=== PATIENT | male | born 1970 | race Caucasian/White ===

== ENCOUNTER 2021-06-16 20:57 | Inpatient (IN) ==
[2021-06-16 21:34] LABS: Basophils # 0.1 10*3/uL (0.0-0.2); Basophils % 0.3 % (0.0-0.8); Eosinophils # 0.2 10*3/uL (0.0-0.87); Eosinophils % 0.9 % (0.00-10.9); Hematocrit 41.8 VOL% (42.0-52.0); Immature Granulocytes % 0.4 %; Immature Granulocytes Absolute 0.08 #; Lymphocytes # 2.6 10*3/uL (1.4-4.0); Lymphocytes % 13.9 % (21.2-54.2); Mean Corpuscular HGB Conc 33.5 GM/DL (32-36); Mean Corpuscular Volume 88.6 FL (87-102); Mean Platelet Volume 10.5 FL (9.6-12.0); Monocytes % 7.2 % (1.7-12.7); Neutrophils % 77.3 % (38.7-73.9); Platelet Count 273 T/CUMM (130-400); Red Blood Count 4.72 MC/CUMM (3.8-5.5); White Blood Count 18.7 T/CUMM (4-12)
[2021-06-16 21:52] LABS: Albumin 3.5 G/DL (3.4-5.0); Bilirubin,Total 0.5 MG/DL (0.20-1.00); Calcium 9.2 MG/DL (8.5-10.1); Osmolality,Calculated 280.5 MOS/KG (273-304); Potassium 4.2 MMOL/L (3.5-5.1); Total Protein 7.8 G/DL (6.4-8.2)
[2021-06-16] MEDS ORDERED: hydrALAZINE 20 MG/1 ML VIAL IV STA (23:06)
[2021-06-16] MEDS ORDERED: hydrALAZINE 20 MG/1 ML VIAL ONE (23:07)
[2021-06-16] MEDS ORDERED: LEVOFLOXACIN INJ 500 MG/100 ML PREMIX IV ONE (23:56)
[2021-06-17] MEDS ORDERED: MAGNESIUM SULF RIDER 2 GM/50 ML PREMIX IV PRN (01:19)
[2021-06-17] MEDS ORDERED: GLUCAGON 1 MG VIAL IM PRN (01:19)
[2021-06-17] MEDS ORDERED: MAGNESIUM SULF RIDER 4 GM/100 ML PREMIX IV PRN (01:19)
[2021-06-17] MEDS ORDERED: DEXTROSE 50% 25 GM/50 ML VIAL IV PRN (01:19)
[2021-06-17] MEDS ORDERED: ONDANSETRON 4 MG/2 ML VIAL IV PRN (01:23)
[2021-06-17] MEDS ORDERED: hydrALAZINE 20 MG/1 ML VIAL IV PRN (01:23)
[2021-06-17] MEDS ORDERED: ACETAMINOPHEN 325 MG TABLET PO PRN (01:23)
[2021-06-17] MEDS ORDERED: POTASSIUM CHLORIDE RIDER 10 MEQ/100 ML PREMIX IV PRN (01:23)
[2021-06-17] MEDS ORDERED: SIMETHICONE CHEW 125 MG TABLET PO PRN (01:23)
[2021-06-17] MEDS ORDERED: FUROSEMIDE 40 MG/4 ML VIAL IV ONE (02:31)
[2021-06-17] MEDS: methylPREDNISolone SOD SUC 125 MG/2 ML VIAL IV SCH ×4 (02:50→21:12)
[2021-06-17] MEDS: ENOXAPARIN 40 MG/0.4 ML SYRINGE SUBCUT SCH (02:51)
[2021-06-17] MEDS ORDERED: LEVOFLOXACIN INJ 500 MG/100 ML PREMIX IV SCH (03:00)
[2021-06-17 05:58] LABS: Basophils % 0.2 % (0.0-0.8); Eosinophils # 0.1 10*3/uL (0.0-0.87); Eosinophils % 0.5 % (0.00-10.9); Hematocrit 42.7 VOL% (42.0-52.0); Immature Granulocytes % 0.4 %; Immature Granulocytes Absolute 0.04 #; Lymphocytes # 1.4 10*3/uL (1.4-4.0); Lymphocytes % 12.1 % (21.2-54.2); Mean Corpuscular HGB Conc 32.8 GM/DL (32-36); Mean Corpuscular Volume 87.7 FL (87-102); Mean Platelet Volume 10.8 FL (9.6-12.0); Monocytes % 1.8 % (1.7-12.7); Platelet Count 275 T/CUMM (130-400); Red Blood Count 4.87 MC/CUMM (3.8-5.5); Red Cell Distribution Width 13.8 % (9.3-17.3); White Blood Count 11.3 T/CUMM (4-12)
[2021-06-17 06:35] LABS: Calcium 8.7 MG/DL (8.5-10.1); Potassium 3.9 MMOL/L (3.5-5.1); Thyroid Stimulating Hormone 4.13 uIU/ml (0.358-3.74)
[2021-06-17] MEDS: ALBUTEROL 2.5 MG/3 ML NEB RESP TX SCH ×3 (07:10→19:30)
[2021-06-17] MEDS ORDERED: ALBUTEROL 2.5 MG/3 ML NEB RESP TX PRN (07:53)
[2021-06-17] MEDS: amLODIPine 10 MG TABLET PO SCH (09:43)
[2021-06-17] MEDS: LISINOPRIL/HCTZ 10-12.5 MG TABLET PO SCH (09:43)
[2021-06-17] MEDS: CYANOCOBALAMIN 500 MCG TABLET PO SCH (09:43)
[2021-06-17] MEDS: PANTOPRAZOLE 40 MG TABLET PO SCH (09:43)
[2021-06-17] MEDS: INSULIN LISPRO 100 UNIT/ML SUBCUT SCH ×4 (09:44→21:43)
[2021-06-17] MEDS: FLUTICASONE UMECLIDIN VILANTER INH SCH (12:40)
[2021-06-17] MEDS ORDERED: INSULIN GLARGINE 100 UNIT/ML SUBCUT SCH (21:00)
[2021-06-18] MEDS ORDERED: INSULIN LISPRO 100 UNIT/ML SUBCUT ONE ×2 (00:22→03:18)
[2021-06-18] MEDS ORDERED: LEVOFLOXACIN INJ 500 MG/100 ML PREMIX IV SCH (00:30)
[2021-06-18] MEDS: ALBUTEROL 2.5 MG/3 ML NEB RESP TX SCH ×2 (00:34→08:20)
[2021-06-18] MEDS: PHENOL 1.4% THROAT SPRAY 177 ML BOTTLE PO PRN ×3 (00:37→06:08)
[2021-06-18] MEDS: methylPREDNISolone SOD SUC 125 MG/2 ML VIAL IV SCH ×2 (01:14→11:30)
[2021-06-18] MEDS: ENOXAPARIN 40 MG/0.4 ML SYRINGE SUBCUT SCH (01:14)
[2021-06-18 05:26] LABS: Basophils % 0.1 % (0.0-0.8); Hemoglobin 14.4 GM/DL (14.0-18.0); Immature Granulocytes % 0.5 %; Immature Granulocytes Absolute 0.09 #; Lymphocytes # 1.3 10*3/uL (1.4-4.0); Lymphocytes % 7.6 % (21.2-54.2); Mean Corpuscular HGB Conc 33.5 GM/DL (32-36); Mean Corpuscular Volume 88.1 FL (87-102); Mean Platelet Volume 10.5 FL (9.6-12.0); Monocytes % 1.5 % (1.7-12.7); Neutrophils % 90.3 % (38.7-73.9); Platelet Count 300 T/CUMM (130-400); Red Blood Count 4.88 MC/CUMM (3.8-5.5); Red Cell Distribution Width 13.8 % (9.3-17.3); White Blood Count 17.5 T/CUMM (4-12)
[2021-06-18 05:43] LABS: Calcium 8.9 MG/DL (8.5-10.1); Osmolality,Calculated 287.4 MOS/KG (273-304); Potassium 3.8 MMOL/L (3.5-5.1)
[2021-06-18] MEDS ORDERED: LEVOTHYROXINE 75 MCG TABLET PO SCH (07:00)
[2021-06-18] MEDS: PANTOPRAZOLE 40 MG TABLET PO SCH (08:35)
[2021-06-18] MEDS: CYANOCOBALAMIN 500 MCG TABLET PO SCH (08:35)
[2021-06-18] MEDS: amLODIPine 10 MG TABLET PO SCH (08:35)
[2021-06-18] MEDS: INSULIN LISPRO 100 UNIT/ML SUBCUT SCH ×4 (08:38→12:42)
[2021-06-18] MEDS: FLUTICASONE UMECLIDIN VILANTER INH SCH (08:51)
[2021-06-18] MEDS ORDERED: ATORVASTATIN 80 MG TABLET PO SCH (09:00)
[2021-06-18] MEDS ORDERED: methylPREDNISolone SOD SUC 125 MG/2 ML VIAL IV SCH (09:00)
[2021-06-18] MEDS ORDERED: ASPIRIN EC 81 MG TABLET PO SCH (09:00)
[2021-06-18] MEDS: LISINOPRIL/HCTZ 10-12.5 MG TABLET PO SCH (11:38)
[2021-06-18 12:54] VITALS: BP 132/79
== END 2021-06-18 13:35 | disposition home or self-care (01) | DRG 202 ==
LOC: N.ED 20:57 → N.EDINP 06-17 01:19 → N.TELEN 06-17 01:57
PROVIDERS: ADMIT Internal Medicine; ATTEND Internal Medicine